=== PATIENT | female | born 1975 | race Caucasian/White ===

== ENCOUNTER 2024-09-08 00:25 | Emergency (ER) | payer BC ==
[~2024-09-08] VITALS: Ht 157.5 cm; Wt 59.6 kg
[2024-09-08 00:39] VITALS: TEMP 98
[2024-09-08 03:09] VITALS: BP 116/79; PULSE 84; O2SAT 99
--- NOTE | 2024-09-08 03:30 | Physician Documentation ---
History of Present Illness ~ Chief Complaint: Vaginal Bleeding Stated Complaint: SEE CHIEF Time Seen by MD: 03:15 Source: patient Mode of Arrival: POV Exam Limitations: no limitations HPI Patient with a history of high blood pressure in with heavy vaginal bleeding that started today. She denies any cramping. States her regular menstrual cycle started 2 days ago and then today she has had excessive bleeding with clots and she bleeds through a pad an hour. She states normally she does have heavy periods but never like this. Otherwise no complaints. Medication Reconciliation Allergies: Coded Allergies: hydrocodone (Verified Allergy, Mild, nausea, 09/08/24) Past Medical History Past Medical History: Hypertension Smoking Status: Never smoker Review of Systems All Other Systems at this time: Reviewed and Negative Physical Exam Vital Signs: Temperature: 98.0, Source: Temporal, Heart Rate: 84, Respiratory Rate: 15, BP: 116/79, Pulse Oximetry: 99, Weight: 59.600 Oxygen Flow Rate: 0 Physical Exam General: Alert and oriented x4, well-appearing, well-nourished, no acute distress HEENT: Normocephalic, atraumatic, no visible or palpable masses or depression, extraocular movements intact, PERRLA, no scleral icterus, Heart: Regular rate and rhythm, Lungs: Clear normal work of breathing Abdomen: Soft, nontender, Extremities: Full range of motion Musculoskeletal: Normal gait, normal tone Neurologic: Cranial nerves 2-12 are intact Psychiatric: Alert and oriented x4, judgment and insight normal, normal mood and affect Skin: Good turgor, no rashes Progress Results/Orders Results/Orders Orders - ELDA MORE MD [facility] (09/08/24 ) [facility]/With Duplex (09/08/24 04:01) Completed Orders - ELDA MORE MD Cbc/Diff (09/08/24 03:15) CMP (09/08/24 03:15) Ua W/Microscopic, Cult If Ind (09/08/24 03:20) [facility] Pelvis/With Duplex (09/08/24 04:01) Hcg, Ur Ql (09/08/24 04:03) Vital Signs 09/08/24 09/08/24 09/08/24 09/08/24 00:39 01:02 02:08 03:09 Temp 98.0 Pulse 103 87 82 84 Resp 16 15 16 15 B/P (MAP) 119/87 119/79 (92) 121/78 (92) 116/79 (91) Pulse Ox 100 100 100 99 O2 Flow Rate 0 0 0 0 Laboratory Tests Test 09/08/24 03:20 White Blood Count 11.0 Red Blood Count 4.12 L Hemoglobin 12.1 Hematocrit 35.1 Mean Corpuscular Volume 85.0 Mean Corpuscular Hemoglobin 29.3 Mean Corpuscular Hemoglobin Concent 34.5 Red Cell Distribution Width 14.7 H Platelet Count 290 Mean Platelet Volume 9.6 Neutrophils (%) (Auto) 70.8 Lymphocytes (%) (Auto) 19.3 L Monocytes (%) (Auto) 8.5 Eosinophils (%) (Auto) 0.8 Basophils (%) (Auto) 0.6 Neutrophils # (Auto) 7.8 H Lymphocytes # (Auto) 2.1 Monocytes # (Auto) 0.9 Eosinophils # (Auto) 0.1 Basophils # (Auto) 0.1 CBC Comment Urine Specimen Description Voided Urine Color Straw Urine Clarity Cloudy Urine pH 6.0 Urine Specific [place] 1.010 Urine Protein Negative Urine Glucose (UA) Negative Urine Ketones 15 H Urine Occult Blood Large H Urine Nitrite Negative Urine Bilirubin Negative Urine Urobilinogen 0.2 Urine Leukocyte Esterase Negative Urine RBC 50-100 Urine WBC 0-4 Urine Squamous Epithelial Cells Few Urine Bacteria None seen Urine Culture Indicated Not ind Volume Urine Centrifuged 10 ml Urine HCG, Qualitative Negative Urine Comment Sodium Level 139 Potassium Level 4.3 Chloride Level 103 Carbon Dioxide Level 29.8 Anion Gap 6 L Blood Urea Nitrogen 18 Creatinine 1.01 H Estimated GFR/1.73 m2 58 BUN/Creatinine Ratio 17.8 Glucose Level 103 Calcium Level 8.5 Total Bilirubin 0.5 Aspartate Amino Transf (AST/SGOT) 12 Alanine Aminotransferase (ALT/SGPT) 24 Alkaline Phosphatase 50 Total Protein 7.0 Albumin 3.9 Globulin 3.1 Albumin/Globulin Ratio 1.3 Chemistry Comments Medical Decision Making Additional Comment Differential includes but is not limited to: Uterine fibroid, uterine cancer, , miscarriage Departure Disposition: HOME / SELF CARE / HOMELESS Impression: Primary Impression: Uterine fibroid Qualified Codes: D25.9 - Leiomyoma of uterus, unspecified Additional Impression Text Patient in with multiple uterine fibroids on ultrasound. Placing her on medro xyprogesterone 10 mg daily for 10 days. Patient reports it has slowed down in the ER. CBC, CMP and urinalysis unremarkable. 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 Condition: Stable Discharge Instructions: Uterine Fibroids, Cqpi-[id number] Additional Instructions: Follow-up with your veneer taping machine operator for further evaluation. Return here if new or worsening symptoms prior to follow-up. Referrals: NO PRIMARY CARE PROVIDER (PCP) Prescriptions Medroxyprogesterone Acet (Medroxyprogesterone Acetate) 10 Mg Tablet 1 TAB PO DAILY for 10 Days, #10 TAB 0 Refills Prov: ELDA MORE MD 09/08/24 Education Educated: Patient Educated regarding: diagnosis, treatment, prognosis, need for follow up Signature Scribe Signature: No scribe Attestation: No ELDA Ignacio MD Sep 08, 2024 03:30
[2024-09-08 03:55] LABS: BASOPHILS # (AUTO) 0.1 X10'3 (0-0.2); BASOPHILS % (AUTO) 0.6 % (0-1); EOSINOPHILS # (AUTO) 0.1 X10'3 (0-0.9); EOSINOPHILS % (AUTO) 0.8 % (0-6); HEMATOCRIT 35.1 % (35.0-45.0); HEMOGLOBIN 12.1 g/dl (12.0-16.0); LYMPHOCYTES # (AUTO) 2.1 X10'3 (1.1-4.8); LYMPHOCYTES % (AUTO) 19.3 % (21-51); MEAN CORPUSCULAR HEMOGLOBIN 29.3 PG (27.0-31.0); MEAN CORPUSCULAR HGB CONC 34.5 g/dL (33.0-36.5); MEAN PLATELET VOLUME 9.6 FL (7.4-10.4); MONOCYTES # (AUTO) 0.9 X10'3 (0-0.9); MONOCYTES % (AUTO) 8.5 % (2-12); NEUTROPHILS # (AUTO) 7.8 X10'3 (1.8-7.7); NEUTROPHILS % (AUTO) 70.8 % (42-75); PLATELET COUNT 290 X10'3 (140-440); RED BLOOD COUNT 4.12 X10'6 (4.20-5.60); RED CELL DISTRIBUTION WIDTH 14.7 % (11.5-14.5)
[2024-09-08 03:57] LABS: BILIRUBIN,URINE NEGATIVE (Neg); CLARITY,URINE CLOUDY (Clear); COLOR,URINE STRAW (Yellow); GLUCOSE, URINE NEGATIVE (Neg); KETONES,URINE 15 mg/dl (Neg); LEUKOCYTE ESTERASE ,URINE NEGATIVE (Neg); NITRITES, URINE NEGATIVE (Neg); OCCULT BLOOD,URINE LARGE (Neg); PROTEIN,URINE NEGATIVE (Neg); UROBILINOGEN,URINE 0.2 E.U/dL (0.2-1.0)
[2024-09-08 04:00] LABS: UA COLLECTION TYPE VOIDED
[2024-09-08 04:01] LABS: ALANINE AMINOTRANSFERASE 24 U/L (12-78); ALBUMIN 3.9 G/DL (3.4-5.0); ALBUMIN/GLOBULIN RATIO 1.3 (1.1-1.5); ALKALINE PHOSPHATASE 50 IU/L (46-116); ANION GAP 6 (8-16); ASPARTATE AMINO TRANSFERASE 12 U/L (10-37); BILIRUBIN,TOTAL 0.5 MG/DL (0.1-1.0); BLOOD UREA NITROGEN 18 MG/DL (7-18); BUN/CREATININE RATIO 17.8 (10.0-20.0); CALCIUM 8.5 MG/DL (8.5-10.1); CHLORIDE 103 MMOL/L (99-107); CREATININE 1.01 MG/DL (0.40-0.90); GLUCOSE 103 MG/DL (70-104); POTASSIUM 4.3 MMOL/L (3.5-5.1); SODIUM 139 MMOL/L (135-145); TOTAL CARBON DIOXIDE 29.8 MMOL/L (24-32); eCRCL 53 ML/MIN; eGFR 58 ML/MIN
[2024-09-08 04:02] LABS: SQUAMOUS EPITHELIAL CELL,UR FEW /LPF (FEW); WBC,URINE 0-4 /HPF (0-4)
[2024-09-08 04:03] LABS: BACTERIA,URINE NONE SEEN /HPF (Neg); RBC,URINE 50-100 /HPF (0-2)
[2024-09-08 04:19] LABS: URINE HCG NEGATIVE (NEG)
[2024-09-08] MEDS ORDERED: MEDR10TA10 PO (04:32)
--- NOTE | 2024-09-08 04:43 | RADIOLOGY REPORT ---
INDICATION: heavy vaginal bleeding TECHNIQUE: Multiple real-time grayscale transabdominal sonographic images along with color and duplex Doppler of the uterus and ovaries were obtained. COMPARISON: None FINDINGS: The uterus measures 10.9 x 6.3 x 6.1 cm. The uterus is homogenous in echotexture. There are few hypoechoic masses the largest in the posterior uterus measuring 5.6 x 4.1 x 3.9 cm. The endometr ial stripe measures 0.7 cm. The right ovary measures 3.4 x 2.5 x 3.0 cm. The left ovary measures 4.7 x 3.2 x 4.0 cm. There is a cyst measuring 3.3 x 2.0 x 2.9 cm. Subsequent color and duplex Doppler interrogation of the ovaries demonstrated symmetric vascular flow to both ovaries, though this does not exclude the possibility of torsion due to the dual blood suppl y. No free fluid in the cul-de-sac. IMPRESSION: 1. Uterine fibroids the largest seen measuring 5.6 cm. 2. Left ovarian cyst. No findings to suggest ovarian torsion.
[2024-09-08 04:44] VITALS: RESP 13
== END 2024-09-08 04:55 | disposition home or self-care (01) ==
LOC: ER 00:27
DX: D25.9 Leiomyoma of uterus, unspecified (principal); I10 Essential (primary) hypertension; Z88.5 Allergy status to narcotic agent
CPT/HCPCS: 36415; 76856; 80053; 81001; 81025; 85025; 93976; 99284